=== PATIENT | female | born 2000 | race American Indian/Alaskan Native ===

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

== ENCOUNTER 2018-04-30 20:09 | Inpatient (IN) | payer OTHER ==
[2018-04-30] MEDS ORDERED: LACTATED RINGERS 1,000 ML IV ONE (20:56)
[2018-04-30] MEDS ORDERED: LACTATED RINGERS 1,000 ML IV SCH (23:45)
[2018-04-30] MEDS ORDERED: PITOCin/NS 30 UNIT/500ML 30 UNITS/500 ML BAG IV SCH (23:45)
[2018-04-30] MEDS ORDERED: PITOCin/NS 20 UNIT/1000ML DRIP 20 UNITS/1,000 ML BAG IV SCH (23:45)
[2018-04-30] MEDS ORDERED: BRETHINE IVP PRN (23:48)
[2018-04-30] MEDS ORDERED: PHENERGAN PO PRN (23:48)
[2018-04-30] MEDS ORDERED: SUBLIMAZE IV PRN (23:48)
[2018-04-30] MEDS ORDERED: NARCAN 0.4 MG/1 ML IV PRN (23:48)
[2018-04-30] MEDS ORDERED: ZOFRAN IV PRN (23:48)
[2018-04-30] MEDS ORDERED: MINERAL OIL PO PRN (23:48)
[2018-04-30] MEDS ORDERED: BRETHINE SUB-Q PRN (23:48)
[2018-04-30] MEDS ORDERED: XYLOCAINE 2% INFILTRATI ONE (23:48)
[2018-04-30] MEDS ORDERED: STADOL IV PRN (23:48)
[2018-05-01] MEDS ORDERED: PFIZERPEN 2.5 MIL.UNITS in NACL 0.9% 50 ML IV SCH
--- NOTE | 2018-05-01 00:06 | History and Physical Report ---
History of Present Illness Date of examination: 05/01/18 Date of admission: contractions History of present illness: This is a 17 yo G3 P 2 EDC 05/10/18 here for contractions. Patient noted to be 3 cm and began roque and walked and progressed to 5cm. She is apatient of [facility] Past History Past Medical History: no pertinent history Past Surgical History: no surgical history Family/Genetic History: none Social history: no significant social history, single. denies: smoking, alcohol abuse, prescription drug abuse - Obstetrical History Expected Date of Delivery: 05/10/18 Actual Gestation: 38 Week(s) 5 Day(s) : 3 Para: 2 Hx # Term Pregnancies: 2 Number of Pregnancies: 0 Spontaneous Abortions: 0 Induced : 0 Number of Living Children: 2 Medications and Allergies Allergies Allergy/AdvReac Type Severity Reaction Status Date / Time No Known Allergies Allergy Verified 11/29/15 08:52 Home Medications Medication Instructions Recorded Confirmed Last Taken Type Ferrous Sulfate [Feosol 325 MG tab] 325 mg PO BID #30 tablet 11/30/15 11/18/16 Unknown Rx Ibuprofen [Motrin 600 MG tab] 600 mg PO Q6H PRN #30 tablet 11/30/15 11/18/16 Unknown Rx Docusate Sodium [Colace] 100 mg PO BID PRN #30 capsule 11/18/16 Unknown Rx Ferrous Sulfate [Feosol 325 MG tab] 325 mg PO BID #60 tablet 11/18/16 Unknown Rx Ibuprofen [Motrin 600 MG tab] 600 mg PO Q6H PRN #30 tablet 11/18/16 Unknown Rx Active Meds: Active Medications Butorphanol Tartrate (Stadol) 2 mg IV Q2H PRN PRN Reason: Pain , Severe (7-10) Ephedrine Sulfate (Ephedrine Sulfate) 10 mg IV Q2M PRN PRN Reason: Hypotension Fentanyl (Sublimaze) 100 mcg IV Q2H PRN PRN Reason: Labor Pain Lactated Ringer's (Lactated Ringers) 1,000 mls @ 125 mls/hr IV DIRECT DANIEL Oxytocin/Sodium Chloride (Pitocin/Ns 20 Unit/1000ml Drip) 20 units in 1,000 mls @ 125 mls/hr IV DIRECT DANIEL Oxytocin/Sodium Chloride (Pitocin/Ns 30 Unit/500ml) 30 units in 500 mls @ 1 mls/hr IV TITR DANIEL; Protocol Penicillin G Potassium 2.5 mil (.units/ Sodium Chloride) 50 mls @ 100 mls/hr IV Q4H DANIEL; Protocol Lidocaine (Xylocaine 2%) 20 ml INFILTRATI ONCE ONE Stop: 04/30/18 23:49 Mineral Oil (Mineral Oil) 30 ml PO QHS PRN PRN Reason: Constipation Naloxone HCl (Narcan 0.4 Mg/1 Ml) 0.1 mg IV Q2MIN PRN PRN Reason: Res Rate </= 8 or 02 SAT < 92% Ondansetron HCl (Zofran) 4 mg IV Q8H PRN PRN Reason: Nausea And Vomiting Promethazine HCl (Phenergan) 25 mg PO Q6H PRN PRN Reason: Nausea And Vomiting Terbutaline Sulfate (Brethine) 0.25 mg SUB-Q ONCE PRN PRN Reason: Hyperstimulation/Hypertonicity Terbutaline Sulfate (Brethine) 0.25 mg IVP ONCE PRN PRN Reason: Hyperstimulation/Hypertonicity Review of Systems All systems: negative Genitourinary: contractions - Vital Signs Vital signs: Vital Signs Temp Resp 98.3 F 16 04/30/18 20:30 04/30/18 20:30 Temp Pulse Resp BP Pulse Ox 98.3 F 83 16 125/77 04/30/18 20:30 04/30/18 20:34 04/30/18 20:30 04/30/18 20:34 - Physical Exam Breasts: Positive: normal Cardiovascular: Regular rate, Normal S1 Lungs: Positive: Clear to auscultation, Normal air movement Abdomen: Positive: normal appearance, soft, normal bowel sounds. Negative: dist ention, tenderness, guarding Genitourinary (Female): Positive: normal external genitalia, normal perenium Vulva: both: normal Vagina: Positive: normal moisture Uterus: Positive: normal size Anus/Rectum: Positive: normal perianal skin Extremities: Positive: normal Deep Tendon Reflex Grade: Normal +2 - Obstetrical FHR: category 1 Cervical Dilatation: 5 Cervical Effacement Percentage: 60 station: 3 Uterine Contraction Pattern: Irregular Uterine Tone Measurement Phase: Contraction Uterine Contraction Intensity: Mild Results All other labs normal. Assessment and Plan A/P IUP 38+5 weeks active labor offer epidural IVF, labs expect vaginal delivery
[2018-05-01 00:12] LABS: Hematocrit 33.5 % (30.3-42.9); Hemoglobin 11.2 gm/dl (10.1-14.3); Mean Corpuscular HGB Conc 33 % (30-34); Mean Corpuscular Volume 82 fl (79-97); Platelet Count 405 K/mm3 (140-440); Red Blood Count 4.09 M/mm3 (3.65-5.03); Red Cell Distribution Width 13.9 % (13.2-15.2)
[2018-05-01] MEDS ORDERED: AMPICILLIN/NS 2 GM/100 ML 2 GM/100 ML BAG IV ONE (00:45)
[2018-05-01] MEDS ORDERED: AMPICILLIN/NS 1 GM/50 ML 1 GM/50 ML BAG IV SCH (02:00)
--- NOTE | 2018-05-01 04:56 | Procedure Note ---
OB Delivery Note - Delivery Date of Delivery: 05/01/18 Surgeon: AZALEA ELDER Estimated blood loss: 200cc - Vaginal Delivery presentation: vertex Delivery position: OA Intrapartum events: none Delivery induction: none Delivery augmentation: rupture of membranes Delivery monitor: external FHT, external uterine Route of delivery: Delivery placenta: spontaneous Delivery cord: nuchal cord, 3 umbilical vessels, other (arm cord) Episiotomy: none Delivery laceration: none Anesthesia: none Delivery comments: Patient was noted to be c/c/ +1 and commenced to pushing. She pushed a viable female infant at 0427 easily delivered head and reduced a loose nuchal cord. The nasopharynx and oropharynx suctioned and baby placed on abdomen. The cord was allowed to pulsate for one minute. The weight of the baby 5 pounds and 13oz. Apgars 8 and 9. Survey of perineum no lacerations noted. EBL 200 cc. Patient tolerated procedure well and bonded with baby. - Infant A at 1 minute: 8 at 5 minutes: 9 Gender: Female (5 pounds and 13 oz)
[2018-05-01] MEDS ORDERED: PERCOCET 5/325 PO PRN (04:57)
[2018-05-01] MEDS ORDERED: ZOFRAN IV PRN (04:57)
[2018-05-01] MEDS ORDERED: TYLENOL PO PRN (04:57)
[2018-05-01] MEDS ORDERED: BENADRYL PO PRN (04:57)
[2018-05-01] MEDS ORDERED: TUCKS PAD TP PRN (04:57)
[2018-05-01] MEDS ORDERED: MILK OF MAGNESIA PO PRN (04:57)
[2018-05-01] MEDS ORDERED: LANSINOH TP PRN (04:57)
[2018-05-01] MEDS ORDERED: DULCOLAX PR PRN (04:57)
[2018-05-01] MEDS ORDERED: PHENERGAN PR PRN (04:57)
[2018-05-01] MEDS ORDERED: PHENERGAN PO PRN (04:57)
[2018-05-01] MEDS ORDERED: SODIUM CHLORIDE FLUSH SYRINGE 10 ML IV NR (05:00)
[2018-05-01] MEDS ORDERED: PITOCin/NS 20 UNIT/1000ML DRIP 20 UNITS/1,000 ML BAG IV SCH (05:00)
[2018-05-01] MEDS: IBUPROFEN PO SCH ×4 (08:13→17:57)
[2018-05-01] MEDS: PRENATAL VITAMIN PO SCH (10:16)
[2018-05-01] MEDS: COLACE PO SCH (10:17)
[2018-05-01] MEDS: NORCO 5/325 PO PRN ×2 (10:20→16:15)
[2018-05-01 16:30] LABS: Hematocrit 32.3 % (30.3-42.9); Hemoglobin 10.9 gm/dl (10.1-14.3)
[2018-05-02] MEDS: IBUPROFEN PO SCH ×5 (05:46→23:40)
[2018-05-02] MEDS ORDERED: M-M-R II VACCINE SUB-Q ONE (06:00)
[2018-05-02] MEDS ORDERED: BOOSTRIX IM ONE (06:00)
--- NOTE | 2018-05-02 07:51 | Progress Note ---
Assessment and Plan A/P PPD #1 s/p vss H/H stable routine PP orders d/c home tomorrow Subjective - Subjective Date of service: 05/02/18 Principal diagnosis: s/p Interval history: This is a 17 yo G3 P 2 EDC 05/10/18 here for contractions. Patient noted to be 3 cm and began roque and walked and progressed to 5cm. She is apatient of [facility] Patient reports: appetite normal, voiding normally, pain well controlled, ambulating normally : doing well Objective - Vital Signs Latest vital signs: Vital Signs Temp Pulse Resp BP BP Pulse Ox 05/02/18 01:38 98.7 F 74 18 115/64 05/02/18 00:00 18 05/01/18 16:00 98.6 F 72 18 120/68 98 05/01/18 09:06 98.0 F 71 17 121/80 98 Intake and Output 05/01/18 05/01/18 05/02/18 15:59 23:59 07:59 Intake Total 600 360 360 Output Total 610 700 500 Balance -10 -340 -140 Intake: Oral 240 360 Intake, Free Water 360 360 Output: Urine 610 700 500 Void 610 700 500 Other: Total, Intake Amount 240 360 Total, Output Amount 610 700 500 - Exam Breasts: Present: normal Cardiovascular: Present: Regular rate, Normal S1 Lungs: Present: Clear to auscultation, Normal air movement Abdomen: Present: normal appearance, soft, normal bowel sounds. Absent: distention, tenderness, guarding Vulva: both: normal Uterus: Present: normal, firm, fundal height below umbilicus. Absent: bogginess, tenderness Extremities: Present: normal Deep Tendon Reflex Grade: Normal +2
--- NOTE | 2018-05-02 07:51 | Discharge Summary ---
Providers - Providers Date of Admission: 05/01/18 00:02 Date of discharge: 05/03/18 Attending physician: AZALEA ELDER MD Primary care physician: AZALEA ELDER MD Hospitalization Reason for admission: active labor Delivery: Episiotomy: none Laceration: none Incision: normal, dry Other procedures: none complications: none Discharge diagnosis: IUP at term delivered [place] baby: female Hospital course: Patient came in labor and delivered. Patient did well PP. Met discharge criteria. Discharged home PPD2. F/u in 4 weeks Condition at discharge: Good Disposition: DC-01 TO HOME OR SELFCARE Plan - Discharge Medications Prescriptions: Ferrous Sulfate 325 mg PO BID #60 tablet. Ibuprofen [Motrin] 600 mg PO Q8H PRN #30 tablet PRN Reason: Pain oxyCODONE /ACETAMINOPHEN [Percocet 5/325] 1 tab PO Q6HR PRN #30 tablet PRN Reason: Pain - Provider Discharge Summary Activity: routine, no sex for 6 weeks, no strenuous exercise Diet: routine Instructions: routine Additional instructions: [] Smoking cessation referral if applicable(refer to patient education folder for contact #) [] Refer to [facility] Booklet Call your doctor immediately for: * Fever > 100.5 * Heavy vaginal bleeding ( >1 pad per hour) * Severe persistent headache * Shortness of breath * Reddened, hot, painful area to leg or breast * Drainage or odor from incision. * Keep incision clean and dry at all times and follow doctor's instructions regarding bathing/showering - Follow up plan Follow up: AZALEA ELDER MD [Primary Care Provider] - 05/29/18
[2018-05-02] MEDS ORDERED: DEPO-PROVERA (CONTRACEPTION) IM NR (08:30)
[2018-05-02] MEDS: NORCO 5/325 PO PRN ×2 (09:59→16:20)
[2018-05-02] MEDS: COLACE PO SCH ×3 (09:59→21:39)
[2018-05-02] MEDS: PRENATAL VITAMIN PO SCH (10:00)
[2018-05-02 14:35] LABS: Hepatitis C Virus Antibody Non-Reactive (NonReactive)
[2018-05-03] MEDS: NORCO 5/325 PO PRN (05:12)
[2018-05-03] MEDS: IBUPROFEN PO SCH ×2 (05:13→12:09)
[2018-05-03] MEDS: PRENATAL VITAMIN PO SCH (10:01)
[2018-05-03] MEDS: COLACE PO SCH (10:01)
[2018-05-03 13:11] VITALS: BP 127/66
== END 2018-05-03 14:40 | disposition home or self-care (01) | DRG 775 ==
LOC: TRG 20:09 → LD 05-01 00:02 → OB 05-01 06:23
PROVIDERS: ADMIT Obstetrics & Gynecology; ATTEND Obstetrics & Gynecology
PROC: 10E0XZZ Delivery of Products of Conception, External Approach (ICD-10-PCS; principal; 2018-05-01)
DX: O69.1XX0 Labor and delivery complicated by cord around neck, with compression, not applicable or unspecified (principal); Z3A.38 38 weeks gestation of pregnancy; Z37.0 Single live birth
CPT/HCPCS: 36415; 85014; 85018; 85027; 86592; 86706; 86762; 86803; 86850; 86900; 86901; 87806; G0378; J0290; J0595; J1050; J2540; J2590; J3010; J7120